=== PATIENT | female | born 1955 | race Caucasian/White ===

== ENCOUNTER 2016-12-25 08:07 | Emergency (ER) | payer BC | END 2016-12-25 08:30 | disposition home or self-care (01) | LOC: SCSER 08:07 | DX: R05 Cough (principal); Z79.899 Other long term (current) drug therapy | CPT/HCPCS: 99282 ==

== ENCOUNTER 2018-05-05 12:44 | Observation (INO) | payer BC ==
[2018-05-05 13:14] LABS: #Basophils 0.1 thou/uL (0.0-0.2); #Eosinphils 0.3 thou/uL (0.0-0.7); #Lymphocytes 1.5 thou/uL (1.20-3.40); #Monocytes 0.5 thou/uL (0.11-0.59); #Neutrophils 5.2 thou/uL (1.40-6.50); %Basophils 0.8 % (0.0-1.0); %Lymphocytes 19.8 % (21.0-51.0); %Monocytes 6.2 % (0.0-10.0); %Neutrophils 69.2 % (42.0-75.0); Hemoglobin 12.6 g/dL (12.0-16.0); Mean Corpuscular HGB CONC 32.2 g/dL (32.0-36.0); Mean Corpuscular Hemoglobin 29.6 pg (27.0-31.0); Mean Corpuscular Volume 91.7 fL (78.0-98.0); Mean Platelet Volume 10.5 fL (7.4-10.4); Platelet Count 223 thou/uL (130-400); RBC Distribution Width 12.8 % (11.5-14.5); Red Blood Cell (RBC) Count 4.27 mill/uL (4.20-5.40); White Blood Cell (WBC) Count 7.6 thou/uL (4.8-10.8)
[2018-05-05] MEDS ORDERED: Nitroglycerin 2% Ointment 1 INCH/1 GM Packet ONE (13:17)
[2018-05-05] MEDS ORDERED: Aspirin Chewable 81 MG TAB ONE (13:18)
[2018-05-05 13:28] LABS: ALT (SGPT) 29 U/L (8-55); AST (SGOT) 20 U/L (5-34); Albumin 3.8 g/dL (3.4-4.8); Alkaline Phosphatase 61 U/L (40-150); Anion Gap 12 mmol/L (10-20); BUN (Urea Nitrogen) 13 mg/dL (9.8-20.1); Bilirubin, Total 0.4 mg/dL (0.2-1.2); Calc. Creatinine Clearance 0 mL/min (70-130); Calcium 9.1 mg/dL (7.8-10.44); Carbon Dioxide 28 mmol/L (23-31); Chloride 109 mmol/L (98-107); Estimated GFR-MDRD Greater than 90; Globulin 2.6 g/dL (2.4-3.5); Glucose 112 mg/dL (80-115); Lipase 18 U/L (8-78); Protein, Total 6.4 g/dL (6.0-8.3); Sodium 146 mmol/L (136-145)
[2018-05-05] MEDS ORDERED: Potassium Chloride 20 MEQ TAB ONE (13:39)
[2018-05-05] MEDS ORDERED: Furosemide 20 MG/2 ML VIAL ONE (14:44)
--- NOTE | 2018-05-05 15:02 | RAD ---
PA AND LATERAL CHEST: Date: 05/05/18 INDICATION: History of shortness of breath. COMPARISON: Prior study dated 02/06/16. FINDINGS: There is mild cardiomegaly, pulmonary vascular congestion, and small bilateral pleural effusions. No consolidation is evident. No acute osseous abnormality is noted. IMPRESSION: Findings suggesting volume overload and CHF. POS: MAG
[2018-05-05 17:38] LABS: Troponin I Less than 0.010 ng/mL (< 0.028)
[2018-05-05] MEDS ORDERED: Acetaminophen 500 MG TAB ONE (17:44)
[2018-05-05] MEDS ORDERED: Acetaminophen 325 MG TAB PO PRN ×2 (19:35→20:22)
[2018-05-05] MEDS ORDERED: Ondansetron PF 4 MG/2 ML Vial IVP PRN (20:22)
[2018-05-05] MEDS ORDERED: Senokot S 8.6-50 MG TAB PO PRN (20:22)
[2018-05-05] MEDS ORDERED: Ondansetron ODT 4 MG TAB PO PRN (20:22)
[2018-05-05] MEDS ORDERED: Acetaminophen 650 MG Suppository PR PRN (20:22)
[2018-05-05] MEDS ORDERED: Guaifenesin DM 100-10/5 ML UDCUP PO PRN (20:22)
[2018-05-05] MEDS ORDERED: Dextrose 50% Abboject 50 ML SYRINGE SLOW IVP PRN (20:27)
[2018-05-05] MEDS ORDERED: Dextrose 5% in Water 1,000 ML IV PRN (20:27)
[2018-05-05] MEDS ORDERED: HumaLOG 300 UNITS/3 ML VIAL SC PRN ×2 (20:27)
[2018-05-05 21:16] LABS: Troponin I Less than 0.010 ng/mL (< 0.028)
[2018-05-05] MEDS: Famotidine 20 MG TAB PO SCH (21:18)
[2018-05-05] MEDS ORDERED: Nitroglycerin 2% Ointment 1 INCH/1 GM Packet TOP SCH (23:59)
--- NOTE | 2018-05-06 03:06 | HP ---
PRIMARY CARE PHYSICIAN: Frankie Gill. CHIEF COMPLAINT: Shortness of breath. HISTORY OF PRESENT ILLNESS: This is a 63-year-old white female with a known history of diabetes and hypertension. She reports that she had been having some cough for about the last month or a little more, had previously had a problem with cough and blood pressure medicines, so she went into her primary care doctor. He changed her BP medications, which included rotating her off medicine that had a hydrochlorothiazide component to it. This improved the cough, but she noticed three days ago, she was getting short of breath and she got severely short of breath today. She had not noticed any lower extremity edema, though she was found to have when she went to the emergency room. She also when she exerts herself, she gets severely short of breath and has a little bit of tightness in her superior chest and across her upper back. Symptoms always resolve quickly with the rest. The patient was seen in [facility] Emergency Room. There, she initially had some elevated blood pressure of 165/72, but with normal O2 saturation on room air. She was given nitroglycerin paste and aspirin, had improvement in her blood pressure. She was noted to have an elevated brain natriuretic peptide as well as bilateral pitting edema to her lower extremities and mild cardiomegaly with pulmonary vascular congestion and small bilateral pleural effusions on her chest x-ray. As a result, the patient was sent over to the hospital for observation overnight and diuresis. She was given a dose of Lasix in the emergency room, and states that her lower extremity edema seems to be a little better. She was also found to have low potassium, so was given a 40 mEq dose orally potassium. PAST MEDICAL HISTORY: 1. Hypertension. 2. Diabetes mellitus type 2, diagnosed a year ago, on oral hypoglycemics. PAST SURGICAL HISTORY: 1. Cholecystectomy. 2. Hysterectomy. 3. Right breast biopsy. PAST SOCIAL HISTORY: No tobacco, alcohol, or illicit drug use. She is single, lives in [place], [place], but is currently visiting her children in town. FAMILY HISTORY: Mother had a CABG and a pacemaker, and maternal grandmother had congestive heart failure. ALLERGIES: NO KNOWN DRUG ALLERGIES. CURRENT MEDICATIONS: 1. Metoprolol succinate 25 mg daily. 2. Amlodipine 5 mg daily. 3. Loratadine 10 mg daily. 4. Montelukast sodium 10 mg daily. 5. Pioglitazone 30 mg daily. REVIEW OF SYSTEMS: CONSTITUTIONAL: No fevers. No chills. No weight changes. EYES: No double vision or blurred vision. ENT: No congestion, drainage, or sore throat. CARDIOVASCULAR: Chest tightness with exertion as per HPI, but no chest pain. No palpitations or racing heart. PULMONARY: She had a cough which is improved, nonproductive, and dyspnea on exertion as per HPI. No specific orthopnea noted. GASTROINTESTINAL: No abdominal pain. No nausea or vomiting. No diarrhea or constipation. GENITOURINARY: No dysuria or hematuria. MUSCULOSKELETAL: No muscle aches or joint pain. SKIN: No rashes or other lesions noted. NEUROLOGIC: No numbness, tingling, or focal weakness. PHYSICAL EXAMINATION: VITAL SIGNS: Blood pressure 146/70, pulse 64, respirations 24, O2 saturation 94% on room air, and temperature 97.7. GENERAL: This is a well-developed, obese white female, in no acute distress. HEENT: Pupils equal, round, and reactive to light. Oropharynx clear without lesions, erythema, or exudate. NECK: Supple. No lymphadenopathy. No thyroid nodules or enlargement. No JVD. HEART: Regular rate and rhythm. No murmurs, rubs, or gallops. LUNGS: Clear to auscultation bilaterally. No wheezes, crackles, or rhonchi. ABDOMEN: Soft, nontender to palpation. Normoactive bowel sounds. No hepatosplenomegaly or other masses. EXTREMITIES: The patient has 1+ pitting edema up to her knees. No clubbing or cyanosis. SKIN: No rashes or other lesions noted. NEUROLOGIC: Intact strength and sensation in all extremities. No facial droop. LABORATORY DATA: CBC within normal limits. Complete metabolic panel notable for sodium of 146, potassium of 3.0, chloride of 109, rest was normal. Troponins are negative x2. Brain natriuretic peptide WAS elevated at 210. Chest x-ray, I did review the chest x-ray done in the emergency room along with the radiologist's report. It does show mild cardiomegaly, congestive changes, and bilateral small pleural effusions consistent with congestive heart failure. EKG, I did review the EKG done in the emergency room. It shows normal sinus rhythm, but with poor R-wave progression, nonspecific EKG. ASSESSMENT: 1. New-onset congestive heart failure, uncertain if it is systolic or diastolic. We will continue IV Lasix. We will get an echocardiogram and will consult Cardiology in the morning. The patient may end up needing either stress test or catheterization depending on the results of the echocardiogram. Due to the significance of the exacerbation right now, we will go ahead and hold her metoprolol. She may need to have Coreg restarted once we diurese her a little bit more. 2. Hypertension. We will resume the patient's blood pressure medications except for the metoprolol. 3. Diabetes mellitus, type 2. We will hold her Actos as this can sometimes exacerbate or initiate congestive heart failure. We will give q.a.c. and nightly fingerstick blood sugars and light insulin sliding scale, and we will put the patient on a diabetic diet with fluid restrictions. 4. Gastrointestinal prophylaxis, put the patient on Pepcid twice a day. 5. Deep venous thrombosis prophylaxis, put the patient on Lovenox and LARON hose. 6. Code status. I did discuss this with the patient, she is a full code. Should she be incapacitated, her children would be her medical decision maker, four of them, their names are Deangelo Kilgore, Unique Kilgore, Elsy Thurman, Sharmin Diaz. Job ID: [id number]
[2018-05-06 04:33] LABS: #Eosinphils 0.3 thou/uL (0.0-0.7); #Lymphocytes 1.5 thou/uL (1.20-3.40); #Monocytes 0.4 thou/uL (0.11-0.59); #Neutrophils 4.3 thou/uL (1.40-6.50); %Basophils 0.5 % (0.0-1.0); %Eosinophils 4.7 % (0.0-10.0); %Lymphocytes 22.9 % (21.0-51.0); %Monocytes 6.5 % (0.0-10.0); %Neutrophils 65.4 % (42.0-75.0); Mean Corpuscular HGB CONC 31.4 g/dL (32.0-36.0); Mean Corpuscular Hemoglobin 29.5 pg (27.0-31.0); Mean Corpuscular Volume 93.9 fL (78.0-98.0); Mean Platelet Volume 9.9 fL (7.4-10.4); Platelet Count 234 thou/uL (130-400); RBC Distribution Width 12.5 % (11.5-14.5); Red Blood Cell (RBC) Count 4.41 mill/uL (4.20-5.40); White Blood Cell (WBC) Count 6.5 thou/uL (4.8-10.8)
[2018-05-06 04:45] LABS: Anion Gap 11 mmol/L (10-20); BUN (Urea Nitrogen) 15 mg/dL (9.8-20.1); Calc. Creatinine Clearance 150 mL/min (70-130); Calcium 8.6 mg/dL (7.8-10.44); Carbon Dioxide 27 mmol/L (23-31); Chloride 110 mmol/L (98-107); Estimated GFR-MDRD Greater than 90; Glucose 111 mg/dL (80-115); Potassium 3.5 mmol/L (3.5-5.1); Sodium 144 mmol/L (136-145)
[2018-05-06] MEDS: Furosemide 40 MG/4 ML VIAL SLOW IVP SCH ×2 (05:42→14:25)
--- NOTE | 2018-05-06 08:45 | PDOC.PN ---
- Subjective Encounter Start Date: 05/06/18 Encounter Start Time: 12:30 Subjective: Patient reports feeling much better. Had a little SOB this AM, better now. -: Good UOP with Lasix. Belly feels less swollen. - Objective Resuscitation Status - Order Detail: 05/05/18 20:17 Resuscitation Status Routine Resuscitation Status: FULL: Full Resuscitation Discussed with: Patient KENYATTA Reviewed: Yes Vital Signs & Weight: Vital Signs (12 hours) Temp Pulse Resp BP Pulse Ox 05/06/18 07:49 97.3 F L 69 20 154/92 H 93 L 05/06/18 04:21 97.7 F 65 18 147/74 H 93 L 05/05/18 23:15 97.8 F 64 20 141/63 H 94 L Weight Weight 223 lb 3.2 oz I&O: 05/05/18 05/06/18 05/07/18 06:59 06:59 06:59 Intake Total 244 Output Total 350 900 Balance -106 -900 Result Diagrams: 05/06/18 04:26 05/06/18 04:26 Additional Labs: Accuchecks 05/06/18 05/05/18 04:28 21:02 POC Glucose 103 123 H Phys Exam - Physical Examination Constitutional: NAD HEENT: moist MMs Respiratory: no wheezing, no rales, no rhonchi, clear to auscultation bilateral Cardiovascular: RRR, no significant murmur Gastrointestinal: soft, positive bowel sounds Musculoskeletal: edema present 1+ BLE edema Neurological: non-focal, moves all 4 limbs Psychiatric: normal affect, A&O x 3 Dx/Plan (1) Acute CHF Code(s): I50.9 - HEART FAILURE, UNSPECIFIED Status: Acute Qualifiers: Heart failure type: unspecified Qualified Code(s): I50.9 - Heart failure, unspecified Comment: ECHO pending, diuresing with Dr. Kayli jarquin consulted (2) Hypertension Code(s): I10 - ESSENTIAL (PRIMARY) HYPERTENSION Status: Chronic Qualifiers: Hypertension type: essential hypertension Qualified Code(s): I10 - Essential (primary) hypertension Comment: elevated, will adjust meds, likely add Coreg (3) Diabetes mellitus type 2 in obese Code(s): E11.69 - TYPE 2 DIABETES MELLITUS WITH OTHER SPECIFIED COMPLICATION; E66.9 - OBESITY, UNSPECIFIED Status: Chronic Comment: ISS, holding Actos - Plan cont current plan of care, out of bed/ambulate, DVT proph w/lovenox, DVT proph w /SCDs Diuresing well. Can consider d/c home when cleared by cardiology if ECHO -: looks ok. May need to switch to glipizide for DM, though blood sugars -: look good in the hospital. Can f/u about that with PCP. * . - Discharge Day Encounter end time: 12:40
[2018-05-06] MEDS ORDERED: Pioglitazone HCl 15 MG TAB PO SCH (09:00)
[2018-05-06] MEDS: Enoxaparin Sodium 40 MG/0.4 ML SYRINGE SC SCH (10:25)
[2018-05-06] MEDS: Amlodipine 5 MG TAB PO SCH (10:25)
[2018-05-06] MEDS: Montelukast Sodium 10 mg Tablet PO SCH (10:26)
[2018-05-06] MEDS: Famotidine 20 MG TAB PO SCH ×2 (10:26→20:30)
[2018-05-06] MEDS: Loratadine 10 MG TAB PO SCH (10:26)
--- NOTE | 2018-05-06 16:50 | CON ---
DATE OF CONSULTATION: PRIMARY CARE DOCTOR: Dr. Frankie Gill. PRIMARY BUSINESS SERVICES VICE PRESIDENT: Tonya Valero MD REASON FOR CARDIOLOGY CONSULT: New onset CHF. HISTORY OF PRESENT ILLNESS: Ms. Kilgore is a 63-year-old female with significant history of diabetes and hypertension. She started having shortness of breath with gasping since the last Saturday. She was thinking that her symptoms coming from worsening of her allergy or the cold symptoms. However, the patient shortness of breath is becoming worse from night of Saturday and Saturday morning, she had worsening of shortness of breath, dyspnea with exertion with mild exertion. This patient does voice headache and heaviness to upper mediastinal area and pain to the back of her neck, and abdomen bloating and edema in the lower extremities. At the Emergency Department, the patient was given Lasix, which improved the patient's breathing status and today, she denied any shortness of breath or edema in the lower extremities. She also denied abdomen bloating. She also reports today that her losartan was discontinued due to the severe cough, but 2 weeks ago and the patient's symptoms improve after the patient's medication was stopped and changed to metoprolol. She had a cardiac workup around 20 years ago for the chest pain, which was normal according to the patient's report. During the Cardiology assessment, the patient denied chest pain, heaviness, tightness, shortness of breath, dizziness, lightheadedness, or any other cardiac complaints. PAST MEDICAL HISTORY: Hypertension and diabetes type 2. She is on Actos for a year. PATIENT'S SURGICAL HISTORY: 1. Right wrist fracture. 2. Cholecystectomy. 3. Total hysterectomy. 4. Right breast biopsy, which was negative. FAMILY HISTORY: The patient's father due to brain tumor. The patient's mother had a history of CABG and pacemaker placement. The patient's maternal grandmother had congestive heart failure. The patient's 1 of sister has a history of diabetes and asthma. SOCIAL HISTORY: The patient is . 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 She denied any smoking, EtOH, or illicit drug abuse. She has 6 children, all healthy and living well. She drinks at least a 2 cans of soda a day. She does not do regular exercise. She does not watch diet. She usually have takeout food. ALLERGIES: SHE IS ALLERGIC TO LOSARTAN, WHICH MAKE HER SEVERE COUGH. CURRENT MEDICATIONS: 1. Metoprolol succinate 25 mg once a day. 2. Amlodipine 5 mg once a day. 3. Loratadine 10 mg once a day. 4. Singulair ER 10 mg once a day. 5. Actos 30 mg once a day. REVIEW OF SYSTEMS: A 12-point review of systems negative, unless otherwise mentioned in HPI. The patient had intermittent headache since the patient's medication losartan was stopped and changed to metoprolol. The patient's blood pressure have been in 160 to 170 at home, since she is on metoprolol. She had several diarrhea last week, but she denied any blood in her urine or stool. PHYSICAL EXAMINATION: VITAL SIGNS: Blood pressure 156/70, temperature 97.6, pulse is 70 and sinus rhythm, respiratory rate 16, and O2 saturation 96% on room air. GENERAL: The patient is alert and oriented x4, not in acute distress head. HEENT: Head, normocephalic and atraumatic. Eyes, extraocular muscle movement intact. ENT and mouth, oral and nasal mucosa moist without lesions. NECK: No JVD. Normal range of motion. Supple. RESPIRATORY: Clear to auscultate bilaterally, but diminished at the bases. CARDIOVASCULAR: Regular rate and rhythm. Normal S1 and S2. There are no S3 or S4. No significant murmur, hives, or thrill noted. 2+ pulses in the bilateral upper and lower extremities. They have 2+ pitting edema in bilateral lower extremities. Carotid pulses are present without bruit or thrill. ABDOMEN: Soft and nontender. No mass to palpitate. Bowel sounds are present. SKIN: Warm and dry. No lesion, rash, or erythema noticed. MUSCULOSKELETAL: The patient able to move all extremities without difficulty. The patient denied claudication. PSYCHIATRIC: The patient's mood is appropriate. NEUROLOGIC: The patient alert, awake, and oriented x4. Nonfocal. LABORATORY DATA: WBC 6.5, hemoglobin 13.0, hematocrit 41.4, and platelet 234. Sodium 144, potassium 3.5, BUN 15, creatinine 0.62, glucose 111, AST 20, and ALT 29. Troponin all negative and BNP 210. At this moment, I cannot check the patient's 12-lead EKG because the patient is doing this on procedure at this moment, but the anesthesiology crna showed the patient has sinus rhythm. Chest x-ray suggestive of volume overload and CHF. ASSESSMENT AND PLAN: 1. New onset congestive heart failure. The patient's BNP is 210, which is not quite high. However, the patient presents to the Emergency Department with severe shortness of breath with mild exertion, edema in bilateral lower extremities, and abdomen bloated and the patient responds very well with the IV Lasix. She voided more than 1700. Echocardiogram was done today and results are pending at this moment. We like would like to start a beta-jovita, possible carvedilol twice a day. She is on Lasix 40 mg twice a day at this moment. She is no on angiotensin-converting enzyme inhibitor or angiotensin receptor blockers at this moment due to the possible cause and severe cough from this medications. We will continue to monitor. 2. Hypertension. The patient's blood pressure is slightly elevated at this moment. She is not on any blood pressure medications at this moment. We would like to start low-dose carvedilol from today. 3. Diabetes type 2, which is managed by primary care doctor. She is on before meals and at bedtime blood glucose check with insulin sliding scale. 4. Obese. Weight management education given to the patient. Thank you for allowing the Cardiology Service to participate in the care of this patient. We will follow along the patient's care team and make further recommendations as appropriate. Job ID: [id number]
--- NOTE | 2018-05-06 16:55 | NM ---
NUCLEAR MEDICINE CARDIAC MYOCARDIAL PERFUSION SPECT EJECTION FRACTION STUDY WALL MOTION CINE: DATE: 05-06-18 HISTORY: 63-year-old hypertensive female with diabetes mellitus presents with chest pain. TECHNIQUE: Number of days: 1 Rest study: Tc99m sestamibi (Cardiolite) dose: Not administered, this is a stress-only exam. Exercise stress: treadmill. Stress study: Tc99m sestamibi (Cardiolite) dose: 27.2 mCi FINDINGS: CARDIAC (MYOCARDIAL PERFUSION) SPECT There is no significant myocardial perfusion defect. EJECTION FRACTION STUDY EF = 75% WALL MOTION CINE The left ventricular wall motion is normal. There is normal systolic wall thickening. IMPRESSION: Normal. elias POS: PEPITO
[2018-05-07 04:34] VITALS: BMI 36.5
[2018-05-07 05:45] LABS: Anion Gap 11 mmol/L (10-20); BUN (Urea Nitrogen) 14 mg/dL (9.8-20.1); Calc. Creatinine Clearance 146 mL/min (70-130); Calcium 8.8 mg/dL (7.8-10.44); Carbon Dioxide 28 mmol/L (23-31); Chloride 106 mmol/L (98-107); Estimated GFR-MDRD Greater than 90; Glucose 107 mg/dL (80-115); Sodium 142 mmol/L (136-145)
[2018-05-07 05:52] LABS: Potassium 2.9 mmol/L (3.5-5.1)
[2018-05-07] MEDS ORDERED: Potassium Chloride 20 MEQ TAB PO SCH (08:00)
--- NOTE | 2018-05-07 08:00 | CON ---
DATE OF CONSULTATION: 05/06/2018 ADDENDUM: INDICATION FOR CONSULTATION: A 63-year-old patient with shortness of breath and chest discomfort. Please refer to the notes already dictated by nurse practitioner, Raiza Aggarwal. This was felt to be new onset congestive heart failure. This lady has had some lower extremity edema. She complained of abdominal bloating. She was at work. She noticed shortness of breath on Saturday and on Saturday it became worse. She then went to work on Saturday and then decided she was too short of breath to stay at work, and did not feel well. She went to the emergency room and was admitted to the hospital. She has undergone echocardiogram, which was within normal limits. Ejection fraction 50% to 55% with mild mitral and tricuspid valve regurgitation with essentially a normal echocardiogram. She also had a stress test today, which showed no evidence of ischemia and ejection fraction by stress test was about 75%. She has had no previous cardiac history that she is aware of. She did have a cardiac workup about 20 years ago for chest discomfort, which also was reported to be normal at that time. At this time, she remains very stable. She does have some risk factors for coronary artery disease, but there has been none documented. She does have a history of hypertension and diabetes. At this time, she is stable. Her discomfort has resolved. 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 This may be the etiology of the volume overload. She has felt much better after being given IV diuretics. Recently her medications were changed and I believe the medication that she previously was taking perhaps was a combination medication and had some hydrochlorothiazide in it and she says that most likely this is why she has retained the fluid. I explained to her that she needs to watch her volume as well as her sodium intake and then to decrease her amount of p.o. intake unless it is very hot and she is losing increased amounts of sweating or fluids being a normal method such as sweating or urination. As far as her past medical history, social history, family history, review of systems, medications, allergies, please refer to the notes dictated by the nurse practitioner. PHYSICAL EXAMINATION: GENERAL: Reveals a very pleasant, well-developed, well-nourished female, who is in no acute distress at this time. She is alert. She is oriented. VITAL SIGNS: Her blood pressure is 140/64, heart rate was 72 and regular, respiratory rate 12, O2 saturation 94%. At times, her blood pressure has increased up to 157/60 and 156/70. HEENT: Shows head to be normocephalic and atraumatic. Carotid pulses are present. There were no bruits. CHEST: Clear to auscultation without rales, rhonchi, or wheezing. CARDIOVASCULAR: Reveals a regular rate and rhythm. Normal S1 and S2. There is no S3 or S4. There were no significant murmurs, heaves, thrills, bruits or rubs. ABDOMEN: Soft, nontender. Positive bowel sounds are present. EXTREMITIES: Showed no clubbing, cyanosis, or edema. NEUROLOGIC: The patient appears to be fully intact. She has no focal deficits. She is able to ambulate without difficulties. SKIN: Warm and dry. LABORATORY DATA: Her laboratory data is unremarkable. She has a WBC of 6.5, hemoglobin was 13, and platelet count was 234,000. Her sodium was 144, creatinine 0.62. Her cardiac enzymes were unremarkable, they were always negative. Her BNP was 210, which is only mildly elevated. IMPRESSION: 1. Mild congestive heart failure symptoms. She has improved with diuretics. We will continue her medications with some type of mild diuretic. 2. History of hypertension. We will need to also manage her medications. This will be dealt with by the primary care physician. 3. Chest discomfort, most likely this is noncardiac in nature. 4. History of diabetes. She will continue her present medications for her diabetes. From the cardiac standpoint, she is stable and is ready for discharge. We will be more than happy to follow her up in the office, but at this time she does not appear to have any cardiac abnormalities or diagnosis at this time that would indicate further cardiac workup. Job ID: [id number]
--- NOTE | 2018-05-07 08:51 | PDOC.PN ---
- Subjective Encounter Start Date: 05/07/18 Encounter Start Time: 10:20 Subjective: Patient reports resolution of LE edema, no more SOB/PAN. - Objective Resuscitation Status - Order Detail: 05/05/18 20:17 Resuscitation Status Routine Resuscitation Status: FULL: Full Resuscitation Discussed with: Patient KENYATTA Reviewed: Yes Vital Signs & Weight: Vital Signs (12 hours) Temp Pulse Resp BP Pulse Ox 05/07/18 07:47 97.4 F L 65 16 165/78 H 94 L 05/07/18 04:00 97.6 F 65 165/76 H 94 L 05/06/18 23:57 68 169/77 H Weight Weight 219 lb 9.6 oz I&O: 05/06/18 05/07/18 05/08/18 06:59 06:59 06:59 Intake Total 244 960 Output Total 350 3050 Balance -106 -2089 Result Diagrams: 05/06/18 04:26 05/07/18 13:56 Additional Labs: Accuchecks 05/06/18 05/06/18 05/06/18 21:56 16:37 11:39 POC Glucose 106 178 H 96 Phys Exam - Physical Examination Constitutional: NAD HEENT: moist MMs Respiratory: no wheezing, no rales, no rhonchi, clear to auscultation bilateral Cardiovascular: RRR, no significant murmur Gastrointestinal: soft, positive bowel sounds trace pretibial edema Neurological: non-focal, moves all 4 limbs Psychiatric: normal affect, A&O x 3 Dx/Plan (1) Acute CHF Code(s): I50.9 - HEART FAILURE, UNSPECIFIED Status: Acute Qualifiers: Heart failure type: unspecified Qualified Code(s): I50.9 - Heart failure, unspecified Comment: ECHO normal, stress test normal, diuressed well with lasix, Dr. Milan has signed off, likely due to actos (2) Hypertension Code(s): I10 - ESSENTIAL (PRIMARY) HYPERTENSION Status: Chronic Qualifiers: Hypertension type: essential hypertension Qualified Code(s): I10 - Essential (primary) hypertension Comment: elevated, restarting metoprolol (3) Diabetes mellitus type 2 in obese Code(s): E11.69 - TYPE 2 DIABETES MELLITUS WITH OTHER SPECIFIED COMPLICATION; E66.9 - OBESITY, UNSPECIFIED Status: Chronic Comment: ISS, holding Actos (4) Hypokalemia Code(s): E87.6 - HYPOKALEMIA Status: Acute Comment: replacing orally, recheck in afternoon and home if improved - Plan cont current plan of care Blood sugars well controlled with diet only, will d/c actos, patient stable -: for d/c with oral Furosemide once potassium improved * . - Discharge Day Encounter end time: 10:30
[2018-05-07] MEDS ORDERED: Furosemide 20 MG TAB PO SCH (09:00)
[2018-05-07] MEDS ORDERED: hydrALAZINE 25 MG TAB PO SCH (09:00)
[2018-05-07] MEDS: Famotidine 20 MG TAB PO SCH (09:42)
[2018-05-07] MEDS: Montelukast Sodium 10 mg Tablet PO SCH (09:42)
[2018-05-07] MEDS: Loratadine 10 MG TAB PO SCH (09:42)
[2018-05-07] MEDS: Amlodipine 5 MG TAB PO SCH (09:42)
[2018-05-07] MEDS: Potassium Chloride 20 MEQ TAB PO SCH ×2 (09:43→12:02)
[2018-05-07] MEDS: Enoxaparin Sodium 40 MG/0.4 ML SYRINGE SC SCH (09:43)
--- NOTE | 2018-05-07 10:16 | PDOC.CTH ---
Cardiology Progress Note - Subjective Pt. seen and eval. no new events overnight. Stress test and echo WNL. - Objective Vital Signs Temp Pulse Resp BP BP Pulse Ox 05/07/18 09:42 65 117/55 L 05/07/18 07:47 97.4 F L 65 16 165/78 H 94 L 05/07/18 04:00 97.6 F 65 165/76 H 94 L 05/06/18 23:57 68 169/77 H Weight 219 lb 9.6 oz 05/06/18 05/07/18 05/08/18 06:59 06:59 06:59 Intake Total 244 960 Output Total 350 3050 Balance -106 -2090 - Physical Examination General/Neuro: alert & oriented x3 Neck: carotid US brisk, no JVD present Lungs: CTA, unlabored respirations Heart: PMI normal, RRR Abdomen: no HSM, NT/ND, soft - Labs Result Diagrams: 05/06/18 04:26 05/07/18 05:05 Troponin/CKMB Troponin I Less than 0.010 ng/mL (< 0.028) 05/05/18 20:41 - Assessment/Plan 1.CHF- likely just vol. overload. Pt. instructed to watch po intake and sodium. Nl. EF. 2. DM 3. Chest pain: resolved. Neg. stress test for ischemia. 4. HTN: stable. 5. Hypokalemia. Being replaced. Pt. can be d/c'd from a cardiac standpoint. Follow up with primary MD. Cardiac status is stable. I will sign off. See as needed in my office.
[2018-05-07 14:30] LABS: Anion Gap 9 mmol/L (10-20); BUN (Urea Nitrogen) 13 mg/dL (9.8-20.1); Calc. Creatinine Clearance 129 mL/min (70-130); Carbon Dioxide 32 mmol/L (23-31); Chloride 105 mmol/L (98-107); Estimated GFR-MDRD 83; Potassium 3.8 mmol/L (3.5-5.1); Sodium 142 mmol/L (136-145)
[2018-05-07 14:31] LABS: Calcium 9.2 mg/dL (7.8-10.44); Glucose 143 mg/dL (80-115)
[2018-05-07 16:22] VITALS: BP 138/69; TEMP 98.5
--- NOTE | 2018-05-08 01:38 | DIS ---
DATE OF ADMISSION: 05/05/2018 DATE OF DISCHARGE: 05/07/2018 PRIMARY CARE PHYSICIAN: Dr. Frankie Gill. REASON FOR ADMISSION: New-onset congestive heart failure. DIAGNOSES AT DISCHARGE: 1. Acute diastolic congestive heart failure, likely secondary to Actos. 2. Hypertension. 3. Diabetes mellitus type 2, controlled on diet. 4. Hypokalemia, resolved. PROCEDURES: 1. Echocardiogram showing an ejection fraction of 55% to 60%, otherwise without significant abnormality. 2. Nuclear medicine stress test showing normal ventricular wall motion. No evidence of ischemic heart disease. CONSULTATIONS: Cardiology, Dr. Valero. PERTINENT LABORATORY DATA: The patient's potassium dropped to 2.9 after Lasix administration, back up to 3.8 after oral administration. Brain natriuretic peptide was elevated at 210. Cardiac markers negative x3. SUMMARY OF HOSPITAL COURSE: This is a 63-year-old white female with a known history of diabetes and high blood pressure, came in with a cough for about the last month or so. She is having some dyspnea on exertion for the last 3 days, so she asked for some medication changes in the primary care office. She had diabetes diagnosed in the last year and has been on Actos for part of that time. The patient was noted in the ER to have significant edema of her lower extremities, mild cardiomegaly and pulmonary vascular congestion on chest x-ray, and bilateral pleural effusions. She was given Lasix in the emergency room, started to feel much better. The patient was put in observation in the hospital. She had IV Lasix with resolution of her edema and her shortness of breath, dyspnea on exertion. She did have an echocardiogram and stress test as above, and Dr. Valero was consulted. All her echocardiogram and stress test were normal, and Dr. Valero cleared her of significant cardiac disease. The patient did become hypokalemic after her Lasix administration in the hospital, but after oral administration, it came back up to normal. The patient's Actos is felt to be a source of her congestive failure at this time, and it is being discontinued. She was off all oral hypoglycemics during hospitalization and her blood sugars remained mostly in the low 100s and occasionally did have one spike to 170. We are not restarting any other diabetes medications at this time. DISCHARGE MANAGEMENT: Discharged home. FOLLOWUP: Follow up with Dr. Gill in the next 1 to 2 weeks as she may require some other diabetic medication. Follow up with Dr. Valero in 3 to 4 weeks. ACTIVITY: As tolerated. DIET: Diabetic low-sodium fluid-restricted diet. MEDICATIONS: 1. Furosemide 20 mg daily, 30 caps dispensed. 2. Potassium chloride 10 mEq daily, 30 tablets dispensed. 3. Amlodipine 5 mg daily. 4. Continue metoprolol extended-release 25 mg daily. Job ID: [id number] [id number]
== END 2018-05-07 17:26 | disposition home or self-care (01) ==
LOC: SCSER 12:44 → ERHOLD 14:21 → 2SW 19:20
PROVIDERS: ADMIT Internal Medicine; ATTEND Internal Medicine
DX: I11.0 Hypertensive heart disease with heart failure (principal); I50.31 Acute diastolic (congestive) heart failure; E11.9 Type 2 diabetes mellitus without complications; E87.6 Hypokalemia; R07.89 Other chest pain; E66.9 Obesity, unspecified; Z68.36 Body mass index [BMI] 36.0-36.9, adult; Z79.84 Long term (current) use of oral hypoglycemic drugs; Z79.899 Other long term (current) drug therapy; Z88.8 Allergy status to other drugs, medicaments and biological substances
CPT/HCPCS: 36415; 36416; 71046; 78452; 80048; 80053; 83690; 83735; 83880; 84484; 85025; 93005; 93017; 93306; 96372; 96374; 96376; A9500; G0378; J1650; J1940